=== PATIENT | female | born 1990 | race American Indian/Alaskan Native ===

== ENCOUNTER 2017-05-14 18:49 | Emergency (ER) | payer OTHER ==
[2017-05-14] MEDS ORDERED: TYLENOL ONE (19:52)
[2017-05-14] MEDS ORDERED: TYLENOL PO ONE (19:56)
--- NOTE | 2017-05-15 00:50 | Emergency Department Report ---
ED Back Pain/Injury HPI - General Chief Complaint: Back Pain/Injury Stated Complaint: BACK PAIN Time Seen by Provider: 05/15/17 00:28 Source: patient, family Limitations: No Limitations - History of Present Illness Initial Comments: Patient here reports that she is having upper left back pain and left neck pain 4 days. She says she works that she was lifting heavy items and she pulled her muscle. Denies any trauma or headache. Denies any visual difficulties. She says she use Motrin and she had some relief and she did not take any medication today. Patient was given Tylenol in triage. Denies any nausea or vomiting. Denies any numbness acute allergic extremities. Denies any fever or chills. MD Complaint: back pain, back injury Onset/Timin -: days(s) Similar Symptoms Previously: Yes Place: work Radiation: none Severity: mild Severity scale (0 -10): 3 Quality: aching Consistency: intermittent Improves With: immobilization Worsens With: movement Context: while lifting Associated Symptoms: denies: confusion, weakness, chest pain, numbness, difficulty walking, cough, difficulty urinating, diaphoresis, incontinence, fever/chills, constipation, headaches, abdominal pain, loss of appetite, malaise , nausea/vomiting, rash, seizure, shortness of breath, syncope Treatments Prior to Arrival: other (none) - Related Data Previous Rx's Medication Instructions Recorded Last Taken Type Cyclobenzaprine [Flexeril] 10 mg PO TID PRN #15 tablet 05/15/17 Unknown Rx Ibuprofen [Motrin 800 MG tab] 800 mg PO Q8HR PRN #21 tablet 05/15/17 Unknown Rx Allergies Allergy/AdvReac Type Severity Reaction Status Date / Time No Known Allergies Allergy Unverified 08/13/16 08:47 ED Review of Systems ROS: Stated complaint: BACK PAIN Other details as noted in HPI Comment: All other systems reviewed and negative Constitutional: denies: chills, fever Eyes: denies: vision change Respiratory: no symptoms reported Cardiovascular: denies: chest pain, palpitations, edema, syncope Gastrointestinal: denies: abdominal pain, nausea, vomiting, constipation, hematemesis Genitourinary: denies: urgency, dysuria, frequency, hematuria, discharge Musculoskeletal: back pain, arthralgia, myalgia. denies: joint swelling Skin: denies: rash Neurological: denies: headache, weakness ED Past Medical Hx - Past Medical History Previous Medical History?: No - Surgical History Past Surgical History?: Yes Additional Surgical History: wisdom teeth removal - Family History Family history: no significant (single female) - Social History Smoking Status: Never Smoker Substance Use Type: Alcohol - Medications Home Medications: Home Medications Medication Instructions Recorded Confirmed Last Taken Type Cyclobenzaprine [Flexeril] 10 mg PO TID PRN #15 tablet 05/15/17 Unknown Rx Ibuprofen [Motrin 800 MG tab] 800 mg PO Q8HR PRN #21 tablet 05/15/17 Unknown Rx ED Physical Exam - General Limitations: No Limitations General appearance: alert, in no apparent distress - Head Head exam: Present: atraumatic, normocephalic, normal inspection - Eye Eye exam: Present: normal appearance, PERRL, EOMI. Absent: conjunctival injection, nystagmus, periorbital swelling, periorbital tenderness Pupils: Present: normal accommodation - ENT ENT exam: Present: normal exam, normal orophraynx, mucous membranes moist - Neck Neck exam: Present: normal inspection, full ROM. Absent: tenderness, meningismus, lymphadenopathy - Expanded Neck Exam Expanded Neck exam: Absent: tenderness, midline deformity, anterior neck swelling, tracheal deviation - Respiratory Respiratory exam: Present: normal lung sounds bilaterally. Absent: respiratory distress, chest wall tenderness - Cardiovascular Cardiovascular Exam: Present: regular rate, normal rhythm, normal heart sounds - GI/Abdominal GI/Abdominal exam: Present: soft, normal bowel sounds. Absent: distended, tenderness, guarding, rebound, rigid - Extremities Exam Extremities exam: Present: normal inspection, full ROM, normal capillary refill. Absent: tenderness, pedal edema, joint swelling, calf tenderness - Back Exam Back exam: Present: normal inspection, full ROM. Absent: tenderness, CVA tenderness (R), CVA tenderness (L), muscle spasm, paraspinal tenderness, vertebral tenderness, rash noted - Expanded Back Exam Expanded Back exam: Absent: saddle anesthesia Back exam: Negative Straight Leg Raising: Left, Right - Neurological Exam Neurological exam: Present: alert, oriented X3, normal gait, reflexes normal. Absent: motor sensory deficit - Expanded Neurological Exam Expanded Neurological exam: Absent: innattentive, memory loss-remote event, memory loss- recent event, ataxia, receptive aphasia, expressive aphasia, total aphasia, tremor, protecting the airway Patient oriented to: Present: person, place, time Speech: Present: fluid speech Cranial nerves: EOM's Intact: Normal, Gag Reflex: Normal, Tongue Deviation: Normal, Nystagmus: Normal, Facial Sensation: Normal Cerebellar function: Romberg: Normal Upper motor neuron: Pronator Drift: Normal, Sensory Extinction: Normal Sensory exam: Upper Extremity Light Touch: Normal, Upper Extremity Temperature: Normal, UE 2 Point Discrimination: Normal, Lower Extremity Light Touch: Normal, Lower Extremity Temperature: Normal, LE 2 Point Discrimination: Normal Motor strength exam: RUE: 5, LUE: 5, RLE: 5, LLE: 5 DTR: bicep (R): 2+, bicep (L): 2+, tricep (R): 2+, tricep (L): 2+, knee (R): 2+ , knee (L): 2+, ankle (R): 2+, ankle (L): 2+ Best Eye Response (Marston): (4) open spontaneously Best Motor Response (Noel): (6) obeys commands Best Verbal Response (Noel): (5) oriented Noel Total: 15 - Psychiatric Psychiatric exam: Present: normal affect, normal mood - Skin Skin exam: Present: warm, dry, intact, normal color. Absent: rash ED Course Vital Signs 05/14/17 19:45 Temperature 98.1 F Pulse Rate 60 Respiratory 16 Rate Blood Pressure 113/71 [Right] O2 Sat by Pulse 100 Oximetry - Reevaluation(s) Reevaluation #1: 05/15/17 01:30 stable throughout ED stay she was given throughout ED stay. given Tylenol for pain in triage ED Medical Decision Making - Medical Decision Making MDM: Assessment/plan ED course: Reports that she injured her upper back and left neck while lifting a heavy object at work.& 4 days ago and her pain to her left upper back and left neck is 3/ 10 and aching. She too Motrin which gave her some relief. Denies head injury and she is neurologically intact. She does not have an any radiation of pain to extremities. Tylenol relief pain. Discussed the patient if she continues to have and she'll need to follow up with orthopedic doctor. She voiced understanding of discharge diagnoses and treatment plan and discharged home in stable condition. Diagnostics/lab: No need for diagnostics or laboratory testing. Diagnosis: Back muscle strain, Neck muscle strain and back pain. Medication: Tylenol 650 mg given in emergency room. She said that this relieved her pain. Patient given prescription for Motrin 800 mg and Flexeril 10 mg by mouth. Pt to follow up with outpatient orthopedic doctor for neck and back pain Critical care attestation.: If time is entered above; I have spent that time in minutes in the direct care of this critically ill patient, excluding procedure time. ED Disposition Clinical Impression: Upper back pain Upper back strain Qualifiers: Encounter type: initial encounter Qualified Code(s): S29.012A - Strain of muscle and tendon of back wall of thorax, initial encounter Neck muscle strain Qualifiers: Encounter type: initial encounter Qualified Code(s): S16.1XXA - Strain of muscle, fascia and tendon at neck level, initial encounter Disposition: TO HOME OR SELFCARE Is pt being admited?: No Does the pt Need Aspirin: No Condition: Stable Instructions: Muscle Strain (ED) Additional Instructions: He is rest for 72 hours Do not take Flexeril while driving or operating heavy machinery as this medication will cause drowsiness Follow up with orthopedic doctor as instructe Prescriptions: Cyclobenzaprine [Flexeril] 10 mg PO TID PRN #15 tablet PRN Reason: Muscle Spasm Ibuprofen [Motrin 800 MG tab] 800 mg PO Q8HR PRN #21 tablet PRN Reason: Pain Referrals: MIKEL BROOKS MD [Staff Physician] - 05/16/17 PRIMARY CARE, [Primary Care Provider] - 05/16/17 Forms: Work/School Release Form(ED)
[2017-05-15 02:42] VITALS: BP 142/80
== END 2017-05-15 01:44 | disposition home or self-care (01) ==
LOC: ED 18:49
DX: S29.012A Strain of muscle and tendon of back wall of thorax, initial encounter (principal); S16.1XXA Strain of muscle, fascia and tendon at neck level, initial encounter; M54.6 Pain in thoracic spine; X50.0XXA Overexertion from strenuous movement or load, initial encounter; Y93.89 Activity, other specified; Y99.8 Other external cause status; Y92.89 Other specified places as the place of occurrence of the external cause
CPT/HCPCS: 99282